=== PATIENT | female | born 1995 | race Caucasian/White ===

== ENCOUNTER 2016-06-09 15:20 | Emergency (ER) | payer OTHER ==
[2016-06-09] MEDS ORDERED: IOPAMIDOL 300 (61%) 100 ML VIAL IV ONE (15:21)
[2016-06-09] MEDS ORDERED: ONDANSETRON 4 MG/2ML 2 ML VIAL ONE (16:07)
[2016-06-09] MEDS ORDERED: SODIUM CHLORIDE 0.9% 2,000 ML ONE (16:07)
[2016-06-09 16:18] LABS: URINE BILIRUBIN NEGATIVE (NEGATIVE); URINE BLOOD 1+ (NEGATIVE); URINE GLUCOSE (UA) NEGATIVE (NEGATIVE); URINE LEUKOCYTE ESTERASE 1+ (NEGATIVE); URINE NITRITE NEGATIVE (NEGATIVE); URINE PROTEIN 1+ (NEGATIVE); URINE UROBILINOGEN NORMAL (0-1 mg/dl)
[2016-06-09 16:21] LABS: URINE APPEARANCE CLOUDY; URINE COLOR DARK YELLOW
[2016-06-09 16:23] LABS: HCG,QUALITATIVE URINE NEGATIVE
[2016-06-09 16:29] LABS: URINE RBC 0-2 /hpf
[2016-06-09 16:30] LABS: URINE AMORPHOUS SEDIMENT MANY; URINE BACTERIA 1+; URINE CRYSTALS FEW /hpf; URINE MUCUS 1+
[2016-06-09 16:41] LABS: ABSOLUTE NEUTROPHIL COUNT 12.8 K/mm3 (1.8-7.7); BASO # 0.1 K/mm3 (0.0-0.2); BASO % 0.3 % (0.2-1.0); EOS # 0.1 (0.0-0.5); EOS % 0.4 % (0.9-2.9); HEMATOCRIT 33.2 % (37.0-47.0); HEMOGLOBIN 11.1 gm/l (12.0-16.0); IMM NEUT # 0.1 K/mm3 (0-0.2); IMM NEUT% 0.3 % (0-1); LYMPH # 1.4 (1.0-4.8); LYMPH % 9.3 % (15-45); MEAN CELL VOLUME 86.9 fl (81.0-99.0); MEAN CORPUSCULAR HEMOGLOBIN 29.1 pg (27.0-31.0); MEAN CORPUSCULAR HGB CONC 33.4 g/dl (33.0-37.0); MEAN PLATELET VOLUME 9.5 fl (7.4-10.4); MONO # 0.9 (0.0-0.8); NEUT % 83.7 % (43-75); PLATELET COUNT 374 K/mm3 (130-400); RED CELL DISTRIBUTION WIDTH 12.1 % (11.5-14.5)
[2016-06-09 17:04] LABS: ALB/GLOB RATIO 1.6 (>1.0); ALBUMIN 4.3 gm/dL (3.5-5.7); MAGNESIUM 1.8 mg/dL (1.9-2.7)
--- NOTE | 2016-06-09 17:06 | CT ---
Exam Type: ABD/PELVIS W/ CON Date and Time: 06/09/2016 4:08 PM Clinical information: Abdominal and chest pain. Comparison: None Technique: Contiguous axial 4 mm images were obtained from the lung bases through the pelvis after the uneventful IV administration of 100 cc of Isovue 300. Sagittal and coronal reformations with high resolution lung algorithm images were also obtained at this time. CT DI: 4.4 DLP 206.8 FINDINGS: Lung base :No abnormality is identified at the lung bases. Visualized heart:There is no pericardial effusion. LIVER: To small to characterize hypodensity is noted within the posterior segment right lobe of liver on image 16. BILE DUCTS: normal caliber. GALLBLADDER: No calcified gallstones. Normal caliber wall. PANCREAS: within normal limits. SPLEEN: within normal limits. ADRENALS: within normal limits. KIDNEYS: within normal limits. Stomach and small BOWEL: Normal caliber. Large bowel: Air and stool are noted within the large bowel. Appendix is normal. LYMPH NODES: No enlarged mesenteric lymph nodes. PERITONEUM: Large amount of fluid is scattered throughout the peritoneum. This is high density within the pelvis representing blood products. The fluid does track up the paracolic gutters to the level of the solid organs. No active extravasation of contrast is noted, however. VESSELS: There are some prominent vessels involving the left adnexal region. Vascular malformation is possible. RETROPERITONEUM: within normal limits. ABDOMINAL WALL: within normal limits. Bladder: Normal. Uterus and adnexa: IUD is present within the uterine cavity. There is a 3.4 x 2.9 cm cyst within the left adnexal region. BONES: within normal limits. IMPRESSION: Blood products within the pelvis, with fluid extending all the way to the solid organs of unknown clinical significance or etiology. Cystic lesion is noted associated with the left ovary. Differential considerations could include rupture of a hemorrhagic cyst or endometrioma. Endometriosis is possible. IUD is present within the endometrial cavity. Differential considerations would also include ectopic . Correlation with beta hCG would be recommended. [employer] consult could be helpful in further assessment as clinically warranted. Findings were called to Dr. Tierney at approximately 1703 hours on 06/09/2016.
[2016-06-09] MEDS ORDERED: SULFAMETHOXAZOLE 800 MG/TRIMETHOPRIM 160 MG TABLET ONE (19:19)
[2016-06-09 20:01] LABS: INR 0.99; PARTIAL THROMBOPLASTIN TIME 25.2 SECONDS (24.5-33.0); PROTHROMBIN TIME 10.4 SECONDS (9.3-11.4)
== END 2016-06-09 20:24 | disposition home or self-care (01) ==
LOC: ED 15:20
DX: N83.202 Unspecified ovarian cyst, left side (principal); N39.0 Urinary tract infection, site not specified; R11.0 Nausea
CPT/HCPCS: 83690; 81025; 84702; 85025; 80053; 83735; 85730; 85610; 81001; 74177; 86901; 86850 ×3; 99284 ×2; 96374; 96361 ×2; A9270; J2405; J7030; Q9967